=== PATIENT | female | born 1970 | race Hispanic/Latino ===

== ENCOUNTER → 2018-10-28 | Outpatient (CLI) | payer OTHER | END | disposition home or self-care (01) | LOC: RAH 14:19 | PROVIDERS: ATTEND Nurse Practitioner Family | DX: Z12.31 Encounter for screening mammogram for malignant neoplasm of breast (principal) | CPT/HCPCS: 77067 ==

== ENCOUNTER 2020-07-10 22:01 | Inpatient (IN) | payer OTHER ==
[~2020-07-10] VITALS: Ht 152.4 cm; Wt 96.6 kg
[2020-07-10 22:59] LABS: ABG BASE EXCESS 2.5 mmol/L (-2.0-3.0); ABG HCO3 27.1 mmol/L (21.0-28.0); ABG OXYGEN SATURATION 94.9 % (95.0-99.0); ABG PCO2 42 mmHg (32-45)
[2020-07-10] MEDS ORDERED: IPRATROPIUM/ALBUTEROL SULFATE 3 ML SOLUTION IH ONE (23:14)
[2020-07-10 23:22] LABS: BASOPHILS % (AUTO) 0.5 % (0.0-5.0); EOSINOPHILS % (AUTO) 8.3 % (0.0-8.0); HEMATOCRIT 41.5 % (36-48); LYMPHOCYTES % (AUTO) 24.2 % (21.0-51.0); MEAN CORPUSCULAR HEMOGLOBIN 27.9 pg (27.0-33.0); MEAN CORPUSCULAR HGB CONC 33.7 g/dL (32.0-36.0); MEAN CORPUSCULAR VOLUME 82.7 fL (79-99); MONOCYTES % (AUTO) 5.7 % (3.0-13.0); NEUTROPHILS % (AUTO) 60.8 % (40.0-77.0); PLATELET COUNT (AUTO) 383 K/uL (130-400); RED BLOOD CELL COUNT(AUTO) 5.02 MIL/uL (4.00-5.50); WHITE BLOOD COUNT (AUTO) 14.9 K/uL (4.8-10.8)
[2020-07-10] MEDS ORDERED: DEXAMETHASONE SOD PHOSPHATE 10MG/ML 1ML VIAL ONE (23:22)
[2020-07-10 23:23] LABS: CARBON DIOXIDE 28 mmol/L (21-32); CHLORIDE 99 mmol/L (101-111); GLOMERULAR FILTR. RATE CALC 63 mL/min (>60); GLUCOSE,RANDOM 129 mg/dL (70-105); SODIUM SERUM 140 mmol/L (136-145); UREA NITROGEN, BLOOD 11 mg/dL (7-18)
[2020-07-10 23:34] LABS: ALANINE AMINOTRANSFERASE 51 U/L (12-78); ALBUMIN 3.7 g/dL (3.5-5.0); ASPARTATE AMINOTRANSFERASE 25 U/L (10-37); BILIRUBIN,TOTAL 0.4 mg/dL (0.2-1.0); CREATINE KINASE, TOTAL 96 U/L (21-232); MYOGLOBIN 83 ng/mL (10-92); TOTAL PROTEIN, SERUM 8.1 g/dL (6.0-8.3); TROPONIN I < 0.04 ng/mL (0.00-0.06)
[2020-07-10 23:38] LABS: INR 0.92 (0.85-1.15); PROTHROMBIN TIME 10.1 SEC (9.6-11.6)
[2020-07-10 23:39] LABS: PARTIAL THROMBOPLASTIN TIME 21.4 SEC (26.3-35.5)
[2020-07-10 23:53] LABS: B-TYPE NATRIURETIC PEPTIDE < 5 pg/mL (0-100)
[2020-07-11 00:01] LABS: APPEARANCE,URINE Clear (CLEAR); BILIRUBIN,URINE Negative (NEGATIVE); COLOR,URINE Yellow (YELLOW); GLUCOSE, URINE (UA) Negative (NEGATIVE); KETONES,URINE Trace mg/dL (NEGATIVE); LEUKOCYTE ESTERASE ,URINE Trace (NEGATIVE); NITRATE,URINE Negative (NEGATIVE); OCCULT BLOOD,URINE Moderate (NEGATIVE); PROTEIN,URINE Trace mg/dL (NEGATIVE)
[2020-07-11 00:17] LABS: BACTERIA,URINE Few /HPF (None Seen)
[2020-07-11] MEDS ORDERED: IPRATROPIUM/ALBUTEROL SULFATE 3 ML SOLUTION IH ONE ×2 (00:23→14:58)
[2020-07-11] MEDS ORDERED: KCL 20 MEQ ERTAB PO ONE (01:58)
[2020-07-11] MEDS ORDERED: ACETAMINOPHEN 325 MG TAB PO PRN (03:15)
[2020-07-11] MEDS ORDERED: AZITHROMYCIN 500MG+NS 250ML 250 ML IV SCH (03:15)
[2020-07-11] MEDS ORDERED: ONDANSETRON 4MG INJ IV PRN (03:15)
[2020-07-11] MEDS ORDERED: GUAIFENESIN-CODEINE 5 ML SYRUP PO PRN (03:30)
[2020-07-11] MEDS: 0.9%NACL 1000ML 1,000 ML IV SCH ×2 (03:45→13:45)
[2020-07-11] MEDS ORDERED: LIDOCAINE HCL-MPF 1% 2ML VIAL IV PRN (03:45)
[2020-07-11] MEDS ORDERED: POTASSIUM CHLORIDE 10% ELIXIR 20 MEQ/15 ML UDCUP PO PRN (03:45)
[2020-07-11] MEDS ORDERED: POTASSIUM CHLORIDE 10MEQ/100ML 100 ML IV PRN (03:45)
[2020-07-11] MEDS ORDERED: LEVOFLOXACIN 500 MG/D5W 100 ML 100 ML IV SCH (04:00)
[2020-07-11] MEDS ORDERED: AZITHROMYCIN 500MG+NS 250ML 250 ML IV ONE (04:19)
[2020-07-11 05:51] LABS: HEMOGLOBIN A1C 5.8 % (4.0-6.0)
[2020-07-11] MEDS: IPRATROPIUM/ALBUTEROL SULFATE 3 ML SOLUTION IH SCH ×4 (06:06→19:17)
[2020-07-11] MEDS ORDERED: LEVOFLOXACIN 500 MG/D5W 100 ML 100 ML ONE (08:14)
[2020-07-11] MEDS ORDERED: CETIRIZINE HCL 5 MG TABLET PO ONE (08:14)
[2020-07-11] MEDS ORDERED: FAMOTIDINE 20MG VIAL IV ONE (08:15)
[2020-07-11] MEDS: CETIRIZINE HCL 5 MG TABLET PO SCH (09:00)
[2020-07-11] MEDS: FAMOTIDINE 20MG VIAL IV SCH ×2 (09:00→22:12)
[2020-07-11 10:32] VITALS: BP 142/81
[2020-07-11] MEDS ORDERED: ALBUTEROL INHALER IH (10:38)
[2020-07-11] MEDS ORDERED: BUDE180H IH (10:38)
[2020-07-11 12:13] LABS: CREATININE 0.9 mg/dL (0.5-1.5); POTASSIUM 3.6 mmol/L (3.5-5.1)
[2020-07-11] MEDS ORDERED: IOHEXOL-350 75 ML VIAL IV ONE (15:23)
[2020-07-11 18:26] VITALS: BP 140/81
[2020-07-11] MEDS ORDERED: MONT-39 PO (19:17)
[2020-07-11] MEDS ORDERED: GUAFACSF5L PO (19:17)
[2020-07-11 19:47] VITALS: BP 129/75
[2020-07-11] MEDS: DOXYCYCLINE HYCLATE 100 MG TABLET PO SCH (22:12)
[2020-07-11] MEDS: IPRATROPIUM 0.5 MG/2.5 ML INH IH SCH (22:29)
[2020-07-11 23:19] VITALS: BP 127/70
[2020-07-12] MEDS: IPRATROPIUM 0.5 MG/2.5 ML INH IH SCH ×3 (01:53→10:11)
[2020-07-12] MEDS: 0.9%NACL 1000ML 1,000 ML IV SCH ×3 (02:08→20:56)
[2020-07-12 03:52] VITALS: BP 125/77
[2020-07-12 05:01] LABS: BASOPHILS % (AUTO) 0.5 % (0.0-5.0); HEMATOCRIT 33.6 % (36-48); LYMPHOCYTES % (AUTO) 23.6 % (21.0-51.0); MEAN CORPUSCULAR HEMOGLOBIN 29.2 pg (27.0-33.0); MEAN CORPUSCULAR HGB CONC 34.2 g/dL (32.0-36.0); MEAN CORPUSCULAR VOLUME 85.3 fL (79-99); NEUTROPHILS % (AUTO) 63.4 % (40.0-77.0); PLATELET COUNT (AUTO) 278 K/uL (130-400); RED BLOOD CELL COUNT(AUTO) 3.94 MIL/uL (4.00-5.50); RED CELL DISTRIBUTION WIDTH 13.2 % (11.0-15.5); WHITE BLOOD COUNT (AUTO) 14.9 K/uL (4.8-10.8)
[2020-07-12 05:31] LABS: ALBUMIN 2.9 g/dL (3.5-5.0); BILIRUBIN,TOTAL 0.3 mg/dL (0.2-1.0); CREATININE 0.8 mg/dL (0.5-1.5); POTASSIUM 3.3 mmol/L (3.5-5.1); TOTAL PROTEIN, SERUM 6.3 g/dL (6.0-8.3)
[2020-07-12 08:45] VITALS: BP 124/75
[2020-07-12] MEDS: FAMOTIDINE 20MG VIAL IV SCH (09:29)
[2020-07-12] MEDS: DOXYCYCLINE HYCLATE 100 MG TABLET PO SCH (09:33)
[2020-07-12] MEDS: CETIRIZINE HCL 5 MG TABLET PO SCH (09:33)
[2020-07-12] MEDS ORDERED: IPRATROPIUM/ALBUTEROL SULFATE 3 ML SOLUTION IH PRN (10:45)
[2020-07-12] MEDS: SOLU-MEDROL 40MG VIAL IVP SCH ×2 (11:05→20:54)
[2020-07-12 12:10] VITALS: BP 122/77
[2020-07-12] MEDS: HYDROMORPHONE HCL 2 MG TAB PO SCH ×2 (12:55→18:15)
[2020-07-12] MEDS: KCL 20 MEQ ERTAB PO PRN ×3 (13:30→20:54)
[2020-07-12 17:25] VITALS: BP 133/75
[2020-07-12] MEDS: IPRATROPIUM/ALBUTEROL SULFATE 3 ML SOLUTION IH SCH (19:24)
[2020-07-12] MEDS: BUDESONIDE 0.5 MG/2 ML INH IH SCH (19:24)
[2020-07-12 20:00] VITALS: BP 141/74
[2020-07-12] MEDS: BENZONATATE 100 MG CAPSULE PO PRN (20:54)
[2020-07-13] VITALS: BP 147/84
[2020-07-13] MEDS: HYDROMORPHONE HCL 2 MG TAB PO SCH ×4 (00:01→18:15)
[2020-07-13] MEDS: IPRATROPIUM/ALBUTEROL SULFATE 3 ML SOLUTION IH SCH ×4 (00:11→18:43)
[2020-07-13 04:00] VITALS: BP 111/66
[2020-07-13] MEDS: SOLU-MEDROL 40MG VIAL IVP SCH ×3 (04:09→18:43)
[2020-07-13] MEDS: 0.9%NACL 1000ML 1,000 ML IV SCH ×2 (04:29→20:13)
[2020-07-13 06:16] LABS: BASOPHILS % (AUTO) 0.2 % (0.0-5.0); HEMATOCRIT 37.8 % (36-48); LYMPHOCYTES % (AUTO) 8.1 % (21.0-51.0); MEAN CORPUSCULAR HEMOGLOBIN 28.4 pg (27.0-33.0); MEAN CORPUSCULAR HGB CONC 33.9 g/dL (32.0-36.0); MEAN CORPUSCULAR VOLUME 83.8 fL (79-99); MONOCYTES % (AUTO) 1.6 % (3.0-13.0); NEUTROPHILS % (AUTO) 88.9 % (40.0-77.0); PLATELET COUNT (AUTO) 338 K/uL (130-400); RED BLOOD CELL COUNT(AUTO) 4.51 MIL/uL (4.00-5.50); RED CELL DISTRIBUTION WIDTH 13.1 % (11.0-15.5); WHITE BLOOD COUNT (AUTO) 16.9 K/uL (4.8-10.8)
[2020-07-13] MEDS: BUDESONIDE 0.5 MG/2 ML INH IH SCH ×3 (06:25→18:43)
[2020-07-13 06:29] LABS: CREATININE 0.9 mg/dL (0.5-1.5); POTASSIUM 3.8 mmol/L (3.5-5.1)
[2020-07-13 09:16] VITALS: BP 136/93
[2020-07-13] MEDS: MONTELUKAST SODIUM 10 MG TAB PO SCH (10:15)
[2020-07-13] MEDS: ACETAMINOPHEN 325 MG TAB PO PRN ×2 (10:28→20:13)
[2020-07-13 11:49] VITALS: BP 120/58
[2020-07-13 16:00] VITALS: BP 140/76
[2020-07-13 20:00] VITALS: BP 123/69
[2020-07-13] MEDS: BENZONATATE 100 MG CAPSULE PO PRN (20:12)
[2020-07-14] VITALS (8 sets, daily range): BP systolic 123–150; BP diastolic 71–86
[2020-07-14] MEDS: IPRATROPIUM/ALBUTEROL SULFATE 3 ML SOLUTION IH SCH ×5 (00:12→23:23)
[2020-07-14] MEDS: HYDROMORPHONE HCL 2 MG TAB PO SCH ×6 (00:15→22:29)
[2020-07-14] MEDS: SOLU-MEDROL 40MG VIAL IVP SCH (01:18)
[2020-07-14] MEDS: 0.9%NACL 1000ML 1,000 ML IV SCH (01:18)
[2020-07-14] MEDS: BENZONATATE 100 MG CAPSULE PO PRN (06:11)
[2020-07-14] MEDS: ACETAMINOPHEN 325 MG TAB PO PRN (06:11)
[2020-07-14 06:55] LABS: BASOPHILS % (AUTO) 0.2 % (0.0-5.0); HEMATOCRIT 37.2 % (36-48); LYMPHOCYTES % (AUTO) 8.8 % (21.0-51.0); MEAN CORPUSCULAR HEMOGLOBIN 28.2 pg (27.0-33.0); MEAN CORPUSCULAR HGB CONC 33.3 g/dL (32.0-36.0); MEAN CORPUSCULAR VOLUME 84.5 fL (79-99); MONOCYTES % (AUTO) 3.2 % (3.0-13.0); NEUTROPHILS % (AUTO) 86.5 % (40.0-77.0); PLATELET COUNT (AUTO) 349 K/uL (130-400); RED CELL DISTRIBUTION WIDTH 13.1 % (11.0-15.5); WHITE BLOOD COUNT (AUTO) 19.4 K/uL (4.8-10.8)
[2020-07-14] MEDS: BUDESONIDE 0.5 MG/2 ML INH IH SCH ×2 (06:55→18:44)
[2020-07-14 07:09] LABS: CREATININE 0.7 mg/dL (0.5-1.5)
[2020-07-14] MEDS: MONTELUKAST SODIUM 10 MG TAB PO SCH (09:44)
[2020-07-14] MEDS ORDERED: FUROSEMIDE 40MG VIAL IV SCH (10:30)
[2020-07-14] MEDS: PREDNISONE 20 MG TABLET PO SCH (11:24)
[2020-07-14] MEDS: GABAPENTIN 100 MG CAPSULE PO SCH ×2 (14:21→22:29)
[2020-07-15] VITALS: BP 135/84
[2020-07-15 04:00] VITALS: BP 126/78
[2020-07-15] MEDS ORDERED: LACTULOSE 20 GM/30 ML UDCUP PO ONE (04:00)
[2020-07-15] MEDS ORDERED: LACTULOSE 20 GM/30 ML UDCUP ONE (05:48)
[2020-07-15] MEDS: GABAPENTIN 100 MG CAPSULE PO SCH ×2 (05:53→16:54)
[2020-07-15] MEDS: HYDROMORPHONE HCL 2 MG TAB PO SCH (05:53)
[2020-07-15 06:09] LABS: BASOPHILS % (AUTO) 0.3 % (0.0-5.0); EOSINOPHILS % (AUTO) 0.7 % (0.0-8.0); HEMATOCRIT 36.3 % (36-48); LYMPHOCYTES % (AUTO) 24.5 % (21.0-51.0); MEAN CORPUSCULAR HEMOGLOBIN 28.7 pg (27.0-33.0); MEAN CORPUSCULAR HGB CONC 33.9 g/dL (32.0-36.0); MEAN CORPUSCULAR VOLUME 84.6 fL (79-99); MONOCYTES % (AUTO) 7.1 % (3.0-13.0); NEUTROPHILS % (AUTO) 66.3 % (40.0-77.0); PLATELET COUNT (AUTO) 325 K/uL (130-400); RED BLOOD CELL COUNT(AUTO) 4.29 MIL/uL (4.00-5.50); RED CELL DISTRIBUTION WIDTH 13.3 % (11.0-15.5); WHITE BLOOD COUNT (AUTO) 19.6 K/uL (4.8-10.8)
[2020-07-15 06:13] LABS: CREATININE 0.8 mg/dL (0.5-1.5); MAGNESIUM 2.1 mg/dL (1.80-2.40); POTASSIUM 3.2 mmol/L (3.5-5.1)
[2020-07-15] MEDS: IPRATROPIUM/ALBUTEROL SULFATE 3 ML SOLUTION IH SCH (07:02)
[2020-07-15] MEDS: BUDESONIDE 0.5 MG/2 ML INH IH SCH (07:02)
[2020-07-15 07:30] VITALS: BP 139/80
[2020-07-15] MEDS ORDERED: DOCUSATE SODIUM 100 MG CAP PO SCH (09:00)
[2020-07-15] MEDS ORDERED: SENNOSIDES 8.6 MG TABLET PO SCH (09:00)
[2020-07-15] MEDS ORDERED: KCL 20 MEQ ERTAB PO SCH (09:30)
[2020-07-15] MEDS ORDERED: HYDROMORPHONE HCL 2 MG TAB PO PRN (10:45)
[2020-07-15] MEDS: MONTELUKAST SODIUM 10 MG TAB PO SCH (10:49)
[2020-07-15] MEDS: PREDNISONE 20 MG TABLET PO SCH (10:51)
[2020-07-15 11:00] VITALS: BP 131/77
[2020-07-15] MEDS ORDERED: IPRATROPIUM/ALBUTEROL SULFATE 3 ML SOLUTION IH PRN (11:00)
[2020-07-15] MEDS ORDERED: PRED20TA3 PO (15:19)
[2020-07-15] MEDS ORDERED: MONT10TA21 PO (15:19)
[2020-07-15] MEDS ORDERED: GABA100C PO (15:19)
[2020-07-15] MEDS ORDERED: FLUT1AER IH (15:19)
[2020-07-15 16:00] VITALS: BP 131/83
== END 2020-07-15 17:25 | disposition home or self-care (01) | DRG 202 ==
LOC: EDH 22:01 → OBSVTOIN 07-11 03:15 → EDHIP 07-11 03:15 → 3DH 07-11 17:58 → 3CH 07-14 04:13
PROVIDERS: ADMIT Internal Medicine; ATTEND Internal Medicine
DX: J45.901 Unspecified asthma with (acute) exacerbation (principal); U07.1 COVID-19; E87.2 Acidosis; N39.0 Urinary tract infection, site not specified; Z68.41 Body mass index [BMI] 40.0-44.9, adult; R65.10 Systemic inflammatory response syndrome (SIRS) of non-infectious origin without acute organ dysfunction; M30.1 Polyarteritis with lung involvement [Churg-Strauss]; D72.10 Eosinophilia, unspecified; E66.01 Morbid (severe) obesity due to excess calories; E87.6 Hypokalemia; Z86.16 Personal history of COVID-19; Z98.51 Tubal ligation status; Z82.5 Family history of asthma and other chronic lower respiratory diseases
CPT/HCPCS: 36415; 36600; 70450; 71045; 71275; 80048; 80053; 81001; 82550; 82728; 82803; 83036; 83605; 83735; 83874; 83880; 84145; 84484; 85025; 85378; 85610; 85730; 86140; 86900; 86901; 87040; 87088; 87426; 93005; 94640; 94664; G0378; J0456; J1100; J1940; J1956; J2920; J3490; J7030; Q9967; U0003

== ENCOUNTER 2022-09-06 13:22 | Emergency (ER) | payer OTHER ==
[~2022-09-06] VITALS: Ht 149.9 cm; Wt 102.1 kg
[~2022-09-06 13:22] MED LIST: ALBUTEROL INHALER IH; FLUT1AER IH; GABA100C PO; GUAFACSF5L PO; MONT-39 PO; MONT-46 PO; PRED20TA3 PO
[2022-09-06] MEDS ORDERED: BENZONATATE 100 MG CAPSULE PO STA (14:49)
[2022-09-06] MEDS ORDERED: SOLU-MEDROL 125MG VIAL IVP ONE (15:00)
[2022-09-06] MEDS ORDERED: KETOROLAC 15MG/ML VIAL (15MG/ML) IV ONE (15:00)
[2022-09-06] MEDS ORDERED: ACETAMINOPHEN 500 MG TABLET PO ONE (15:00)
[2022-09-06] MEDS ORDERED: GUAIFENESIN-DM 200/20 MG 10 ML PO ONE (15:00)
[2022-09-06] MEDS ORDERED: 0.9%NACL 1000ML 1,000 ML IV ONE (15:00)
[2022-09-06] MEDS ORDERED: IPRATROPIUM/ALBUTEROL SULFATE 3 ML SOLUTION IH SCH (15:00)
[2022-09-06] MEDS ORDERED: IPRATROPIUM/ALBUTEROL SULFATE 3 ML SOLUTION IH ONE (15:00)
[2022-09-06 15:54] VITALS: BP 141/84
[2022-09-06] MEDS ORDERED: PSEU120T62 PO (16:05)
[2022-09-06] MEDS ORDERED: FLUT1BLS15 IH (16:05)
[2022-09-06] MEDS ORDERED: METH4TAB3 PO (16:05)
[2022-09-06] MEDS ORDERED: AZIT250T9 PO (16:05)
[2022-09-06] MEDS ORDERED: ALBU6.7H14 IH (16:05)
[2022-09-06] MEDS ORDERED: GUAI-899 PO (16:05)
== END 2022-09-06 16:21 | disposition home or self-care (01) ==
LOC: EDH 13:22
DX: J45.901 Unspecified asthma with (acute) exacerbation (principal); J01.90 Acute sinusitis, unspecified; J20.9 Acute bronchitis, unspecified; Z90.89 Acquired absence of other organs; Z79.899 Other long term (current) drug therapy; Z20.822 Contact with and (suspected) exposure to COVID-19
CPT/HCPCS: 99284; 96374; 71045; 96361; 87635; 96375; 87804 ×2; 81025; 94640; C9803; J7030; J2930; J1885